=== PATIENT | female | born 1985 | race Caucasian/White ===

== ENCOUNTER 2018-02-19 18:27 | Emergency (ER) | payer OTHER ==
--- NOTE | 2018-02-19 18:35 | ER Report ---
History and Physical Time Seen By MD: 18:36 HPI/ROS CHIEF COMPLAINT: Palpitations HISTORY OF PRESENT ILLNESS: This is a 32-year-old female who presents to the emergency department for palpitations. Patient states that approximate 2 months ago she began to have some minor palpitations, she moved from [place] to [place] for school. However over the last 3 weeks she's an increase in the number palpitations with left-sided anterior chest pain. No radiation. Patient did go to [facility] today for palpitations this morning, she was evaluated there and they did an EKG which she states was "normal". Then tonight approximately 20 this prior to arrival patient was sitting in a theater watching a movie began to have some left-sided anterior chest pain with palpitations, she removed herself from the theater sat down until the pain began to subside and then drove herself to the ER. Patient arrives tearful and anxious. Heart rate around 111. Patient denies any recent illnesses, no nausea or vomiting. No headaches or fevers. Did have some mild diaphoresis however that resolved rather quickly. REVIEW OF SYSTEMS: Constitutional: As above. Eyes: No discharge. ENT: No sore throat. Cardiovascular: As above. Respiratory: No cough, no shortness of breath. Gastrointestinal: No abdominal pain, no vomiting. Genitourinary: No hematuria. Musculoskeletal: No back pain. Skin: No rashes. Neurological: No headache. Allergies: Coded Allergies: Latex, Natural Rubber (Verified Allergy, Mild, HIVES, 02/19/18) metronidazole (Verified Allergy, Mild, HIVES, 02/19/18) Cephalosporins (Verified Allergy, Unknown, HIVES, 02/19/18) Home Meds No Active Prescriptions or Reported Meds Past Medical/Surgical History The patient has no significant past medical or surgical history. Reviewed Nurses Notes: Yes Constitutional Vital Sign - Last 24 Hours 02/19/18 02/19/18 02/19/18 02/19/18 18:32 18:34 18:42 18:44 Temp 98.0 Pulse 111 110 Resp 18 9 B/P (MAP) 197/119 (145) 197/119 194/124 (147) Pulse Ox 97 98 O2 Delivery Room Air 02/19/18 02/19/18 02/19/18 02/19/18 18:57 19:05 19:10 19:15 Pulse 103 100 Resp 18 11 B/P (MAP) 163/110 (127) 166/106 (126) Pulse Ox 95 02/19/18 02/19/18 02/19/18 02/19/18 19:25 19:30 19:40 19:45 Pulse 103 96 Resp 27 11 B/P (MAP) 160/123 (135) ???/??? (166) 02/19/18 02/19/18 02/19/18 02/19/18 19:55 20:00 20:10 20:15 Pulse 96 99 Resp 16 12 B/P (MAP) 160/105 (123) 153/105 (121) 02/19/18 02/19/18 02/19/18 02/19/18 20:25 20:30 20:40 20:45 Pulse 100 98 Resp 16 22 B/P (MAP) 142/94 (110) 154/99 (117) 02/19/18 02/19/18 02/19/18 02/19/18 20:55 21:00 21:15 21:30 Pulse 97 91 97 ??? Resp 14 12 15 B/P (MAP) 158/108 (125) 153/100 (117) ???/??? (1665) 02/19/18 21:45 Pulse ??? B/P (MAP) ???/??? (1665) Physical Exam General Appearance: The patient is alert, has no immediate need for airway protection and no signs of toxicity, anxious. Eyes: Pupils equal and round no pallor or injection. ENT, Mouth: Mucous membranes are moist. Respiratory: There are no retractions, lungs are clear to auscultation. Cardiovascular: Regular rate and rhythm, no murmurs, clicks or rubs. Rate of 103 BPM. Gastrointestinal: Abdomen is soft and non tender, no masses, bowel sounds normal. Neurological: Alert and oriented 4. Moving all extremities. Following all commands. No focal neuro deficits. Skin: Warm and dry, no rashes. Musculoskeletal: Neck is supple non tender. Extremities are nontender, nonswollen and have full range of motion. DIFFERENTIAL DIAGNOSIS: After history and physical exam differential diagnosis was considered for chest pain including but not limited to myocardial ischemia, pericarditis, pulmonary embolus, chest wall pain, pleural inflammation and pulmonary infectious causes. Medical Decision Making Data Points Result Diagram: 8/31/18 1843 02/19/18 1843 Laboratory Hematology Test 02/19/18 18:43 02/19/18 19:00 02/19/18 21:25 Red Blood Count 5.11 M/uL (4.17-5.56) Mean Corpuscular Volume 87.1 fL (80.0-96.0) Mean Corpuscular Hemoglobin 29.6 pg (26.0-33.0) Mean Corpuscular Hemoglobin Concent 34.0 g/dL (32.0-36.0) Red Cell Distribution Width 13.0 % (11.5-14.5) Mean Platelet Volume 9.0 fL (7.2-11.1) Neutrophils (%) (Auto) 59.2 % (39.4-72.5) Lymphocytes (%) (Auto) 32.9 % (17.6-49.6) Monocytes (%) (Auto) 5.3 % (4.1-12.4) Eosinophils (%) (Auto) 1.7 % (0.4-6.7) Basophils (%) (Auto) 0.9 % (0.3-1.4) Nucleated RBC Relative Count (auto) 0.0 /100WBC Neutrophils # (Auto) 6.6 K/uL (2.0-7.4) Lymphocytes # (Auto) 3.7 K/uL (1.3-3.6) Monocytes # (Auto) 0.6 K/uL (0.3-1.0) Eosinophils # (Auto) 0.2 K/uL (0.0-0.5) Basophils # (Auto) 0.1 K/uL (0.0-0.1) Nucleated RBC Absolute Count (auto) 0.00 K/uL D-Dimer Quantitative (PE/DVT) < 0.27 ug/ml (0-0.50) Sodium Level 139 mmol/L (137-145) Potassium Level 3.4 mmol/L (3.5-5.0) Chloride Level 104 mmol/L (98-107) Carbon Dioxide Level 24 mmol/L (22-31) Blood Urea Nitrogen 21 mg/dl (7-18) Creatinine 0.80 mg/dl (0.52-1.04) Glomerular Filtration Rate Calc > 60.0 Random Glucose 116 mg/dl (75-110) Calcium Level 8.7 mg/dl (8.4-10.2) Total Bilirubin 0.2 mg/dl (0.2-1.3) Aspartate Amino Transf (AST/SGOT) 23 U/L (0-35) Alanine Aminotransferase (ALT/SGPT) 20 U/L (0-56) Alkaline Phosphatase 64 U/L (0-126) Total Protein 7.2 g/dl (6.3-8.2) Albumin 4.2 g/dl (3.5-5.0) Urine Color Yellow Urine Clarity Clear Urine pH 6.0 pH (4.8-9.5) Urine Specific [place] 1.018 Urine Protein Negative mg/dL (NEGATIVE) Urine Glucose (UA) Negative mg/dL (NEGATIVE) Urine Ketones Negative mg/dL (NEGATIVE) Urine Blood Negative (NEGATIVE) Urine Nitrite Negative (NEGATIVE) Urine Bilirubin Negative (NEGATIVE) Urine Urobilinogen Negative mg/dL (0.2-1.9) Urine Leukocyte Esterase Negative (NEGATIVE) Urine RBC None /HPF (0-2/HPF) Urine WBC 1 /HPF (0-5/HPF) Urine Squamous Epithelial Cells Many /LPF (</=FEW) Urine Bacteria Negative /HPF (NONE-FEW) Urine Mucus None /HPF (NONE-FEW) Urine HCG, Qualitative Negative (NEGATIVE) Troponin I < 0.012 ng/ml Chemistry Test 02/19/18 18:43 02/19/18 19:00 02/19/18 21:25 White Blood Count 11.2 k/uL (4.5-11.0) Red Blood Count 5.11 M/uL (4.17-5.56) Hemoglobin 15.1 g/dL (12.0-16.0) Hematocrit 44.6 % (34.0-47.0) Mean Corpuscular Volume 87.1 fL (80.0-96.0) Mean Corpuscular Hemoglobin 29.6 pg (26.0-33.0) Mean Corpuscular Hemoglobin Concent 34.0 g/dL (32.0-36.0) Red Cell Distribution Width 13.0 % (11.5-14.5) Platelet Count 351 K/uL (150-450) Mean Platelet Volume 9.0 fL (7.2-11.1) Neutrophils (%) (Auto) 59.2 % (39.4-72.5) Lymphocytes (%) (Auto) 32.9 % (17.6-49.6) Monocytes (%) (Auto) 5.3 % (4.1-12.4) Eosinophils (%) (Auto) 1.7 % (0.4-6.7) Basophils (%) (Auto) 0.9 % (0.3-1.4) Nucleated RBC Relative Count (auto) 0.0 /100WBC Neutrophils # (Auto) 6.6 K/uL (2.0-7.4) Lymphocytes # (Auto) 3.7 K/uL (1.3-3.6) Monocytes # (Auto) 0.6 K/uL (0.3-1.0) Eosinophils # (Auto) 0.2 K/uL (0.0-0.5) Basophils # (Auto) 0.1 K/uL (0.0-0.1) Nucleated RBC Absolute Count (auto) 0.00 K/uL D-Dimer Quantitative (PE/DVT) < 0.27 ug/ml (0-0.50) Glomerular Filtration Rate Calc > 60.0 Calcium Level 8.7 mg/dl (8.4-10.2) Total Bilirubin 0.2 mg/dl (0.2-1.3) Aspartate Amino Transf (AST/SGOT) 23 U/L (0-35) Alanine Aminotransferase (ALT/SGPT) 20 U/L (0-56) Alkaline Phosphatase 64 U/L (0-126) Total Protein 7.2 g/dl (6.3-8.2) Albumin 4.2 g/dl (3.5-5.0) Urine Color Yellow Urine Clarity Clear Urine pH 6.0 pH (4.8-9.5) Urine Specific [place] 1.018 Urine Protein Negative mg/dL (NEGATIVE) Urine Glucose (UA) Negative mg/dL (NEGATIVE) Urine Ketones Negative mg/dL (NEGATIVE) Urine Blood Negative (NEGATIVE) Urine Nitrite Negative (NEGATIVE) Urine Bilirubin Negative (NEGATIVE) Urine Urobilinogen Negative mg/dL (0.2-1.9) Urine Leukocyte Esterase Negative (NEGATIVE) Urine RBC None /HPF (0-2/HPF) Urine WBC 1 /HPF (0-5/HPF) Urine Squamous Epithelial Cells Many /LPF (</=FEW) Urine Bacteria Negative /HPF (NONE-FEW) Urine Mucus None /HPF (NONE-FEW) Urine HCG, Qualitative Negative (NEGATIVE) Troponin I < 0.012 ng/ml Coagulation Test 02/19/18 18:43 D-Dimer Quantitative (PE/DVT) < 0.27 ug/ml Urinalysis Test 02/19/18 19:00 Urine Color Yellow Urine Clarity Clear Urine pH 6.0 pH (4.8-9.5) Urine Specific [place] 1.018 Urine Protein Negative mg/dL (NEGATIVE) Urine Glucose (UA) Negative mg/dL (NEGATIVE) Urine Ketones Negative mg/dL (NEGATIVE) Urine Blood Negative (NEGATIVE) Urine Nitrite Negative (NEGATIVE) Urine Bilirubin Negative (NEGATIVE) Urine Urobilinogen Negative mg/dL (0.2-1.9) Urine Leukocyte Esterase Negative (NEGATIVE) Urine RBC None /HPF (0-2/HPF) Urine WBC 1 /HPF (0-5/HPF) Urine Squamous Epithelial Cells Many /LPF (</=FEW) Urine Bacteria Negative /HPF (NONE-FEW) Urine Mucus None /HPF (NONE-FEW) Urine HCG, Qualitative Negative (NEGATIVE) EKG/Imaging EKG Interpretation 12 lead EKG: EKG 1851. Rhythm: Sinus tachycardia, ventricular rate 103 bpm. [place]: normal QRS: normal ST segments: No ST depression or elevation identified. T-wave inversion in lead 3. No previous EKGs for comparison. 12 lead EKG: Repeat EKG time 2103. Rhythm: Normal sinus rhythm, ventricular rate 95 bpm. [place]: normal QRS: normal ST segments: No ST depression or elevation identified. T-wave inversion in lead 3. No changes from the previous EKG. Imaging Location: [facility] [place] Patient: Vanda Lu : 1985 Visit/Account:[id number] Date of Sevice: 02/19/2018 2 VIEWS CHEST INDICATION: Chest pain. COMPARISON: None available FINDINGS: Cardiomediastinal silhouette and pulmonary vessels within normal limits. There is no focal infiltrate or lobar consolidation. There is no pneumothorax or pleural effusion. No nodule. Upper abdomen is unremarkable. No acute bony abnormality. IMPRESSION: 1. No acute cardiopulmonary process. Report Dictated By: Yonny Beal at 02/19/2018 8:00 PM Report E-Signed By: Yonny Beal at 02/19/2018 8:01 PM WSN:[id number] ED Course/Re-evaluation Clinical Indication for ER IV: Hydration, IV Access ED Course The patient was admitted to room. A history and physical were obtained. Differential diagnoses were considered. An IV was started. A CBC, CMP were obtained. Mild elevation in the white count 11.2 otherwise unremarkable. Chemistry unremarkable. Initial troponin was negative. A 1 L normal saline bolus was given. 324 mg by mouth aspirin. Patient remains pain-free in the ER. 1st EKG showing sinus tachycardia, no ST elevation or depression, repeat EKG showing normal sinus rhythm, no ST depression or elevation. Repeat troponin was negative. Patient was placed on a Holter monitor the results will [facility] I reviewed the repeat troponin with patient. I did tell the patient that I don't have a clear explanation as to why she is having chest pain or palpitations, however this could be secondary to stress. Patient expressed understanding and was discharged home. Return to the ER for any other concerns or worsening symptoms. Decision to Disposition Date: Feb 19, 2018 Decision to Disposition Time: 21:55 Depart Departure Latest Vital Signs Vital Signs Date Time Temp Pulse Resp B/P (MAP) Pulse Ox O2 Delivery O2 Flow Rate FiO2 02/19/18 21:45 ?/??? (1665) 02/19/18 21:15 15 02/19/18 19:10 95 02/19/18 18:34 98.0 Room Air Impression: Primary Impression: Chest pain of unknown etiology Additional Impression: Palpitations Condition: Improved Disposition: HOME OR SELF-CARE New Scripts No Active Prescriptions or Reported Meds Patient Instructions: Chest Pain (ED), Holter Monitoring (ED), Hypertension (ED) Additional Instructions: Continue drinking plenty of water. Get plenty of rest. Keep the holter monitor on for 24 hours, return it to the hospital as directed by the respiratory therapist. The results will be sent to your MD at [facility], Dr. Ross. 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 Return to the ED for any other concerns or any other needs. Problem Qualifiers RASHID DUENAS [employer]LECT[employer] TECHNICIAN-BC Feb 19, 2018 18:35
[2018-02-19] MEDS ORDERED: NS(*) 0.9% 1000 ML BAG 1,000 ML IV ONE (18:48)
[2018-02-19] MEDS ORDERED: ASPIRIN 81 MG CHEW PO ONE (18:50)
[2018-02-19 18:57] LABS: PLATELET COUNT, AUTOMATED 351 K/uL (150-450)
--- NOTE | 2018-02-19 19:21 | EKG ---
FACILITY: [facility] PATIENT NAME: FRANCHESKA SPARROW : [id number] MR: [id number] V: [id number] EXAM DATE: ORDERING PHYSICIAN: RASHID DUENAS TECHNOLOGIST: CHARISMA Meier Reason : Blood Pressure : / mmHG Vent. Rate : 103 BPM Atrial Rate : 103 BPM P-R Int : 142 ms QRS Dur : 082 ms QT Int : 358 ms P-R-T Axes : 056 061 018 degrees QTc Int : 468 ms Sinus tachycardia No acute appearing findings otherwise No previous ECGs available Confirmed by ASHLEY IQBAL ([id number] on 02/19/2018 7:43:04 PM Referred By: Confirmed By:ASHLEY IQBAL
--- NOTE | 2018-02-19 20:05 | RADIOLOGY IMAGING REPORT ---
FACILITY: [facility] [place] PATIENT NAME: Vanda Lu : 1985 MR: [id number] V: [id number] EXAM DATE: ORDERING PHYSICIAN: RASHID DUENAS TECHNOLOGIST: Location: [facility] [place] Patient: Vanda Lu : 1985 Visit/Account:[id number] Date of Sevice: 02/19/2018 2 VIEWS CHEST INDICATION: Chest pain. COMPARISON: None available FINDINGS: Cardiomediastinal silhouette and pulmonary vessels within normal limits. There is no focal infiltrate or lobar consolidation. There is no pneumothorax or pleural effusion. No nodule. Upper abdomen is unremarkable. No acute bony abnormality. IMPRESSION: 1. No acute cardiopulmonary process. Report Dictated By: Yonny Beal at 02/19/2018 8:00 PM Report E-Signed By: Yonny Beal at 02/19/2018 8:01 PM WSN:[id number]
--- NOTE | 2018-02-19 21:39 | EKG ---
FACILITY: [facility] - [place] PATIENT NAME: FRANCHESKA SPARROW : [id number] MR: [id number] V: [id number] EXAM DATE: ORDERING PHYSICIAN: RASHID DUENAS TECHNOLOGIST: CHARISMA Meier Reason : Blood Pressure : / mmHG Vent. Rate : 095 BPM Atrial Rate : 095 BPM P-R Int : 148 ms QRS Dur : 078 ms QT Int : 366 ms P-R-T Axes : 061 063 016 degrees QTc Int : 459 ms Sinus rhythm Possible left atrial enalrgement When compared with ECG of 19-FEB-2018 18:51, No significant change was found Confirmed by ASHLEY IQBAL ([id number] on 02/20/2018 6:07:45 AM Referred By: Confirmed By:ASHLEY IQBAL
--- NOTE | 2018-02-23 17:08 | RT HOLTER TEST ---
FACILITY: [facility] - [place] PATIENT NAME: FRANCHESKA SPARROW : [id number] MR: [id number] V: [id number] EXAM DATE: ORDERING PHYSICIAN: RASHID DUENAS TECHNOLOGIST: DALLIN Hook-up date: 2018-02-19 22:07:00 Duration: 23:56:00 Test Indications: palpitations Medications: [id number] QRS complexes 2 Ventricular ectopics which represent <1 % of total QRS comp. 4 Supraventricular ectopics which represent <1 % of total QRS comp. * Paced QRS complexes which represent % of total QRS comp. VENTRICULAR ECTOPY 2 Isolated 0 Bigeminal Cycles 0 Couplets 0 Runs 0 Beats in Runs * Beats LONGEST at * BPM at :: -- * Beats FASTEST at * BPM at :: -- SUPRAVENTRICULAR ECTOPY 4 Isolated 0 Couplets 0 Runs 0 Beats in Runs * Beats LONGEST at * BPM at :: -- * Beats FASTEST at * BPM at :: -- HEART RATES 74 MIN at 04:11:10 2018-02-20 97 AVG 141 MAX at 16:39:26 2018-02-20 LONGEST RR 0.920 secs at 09:54:05 2018-02-20 S-T LEVELS Channel 1 -12.800 mm MIN at 22:07:00 2018-02-19 -12.800 mm MAX at 22:07:00 2018-02-19 Channel 2 -12.800 mm MIN at 22:07:00 2018-02-19 -12.800 mm MAX at 22:07:00 2018-02-19 Channel 3 -12.800 mm MIN at 22:07:00 2018-02-19 -12.800 mm MAX at 22:07:00 2018-02-19 Sinus rhythm with sinus tachycardia. Infrequent isolated PVC and PAC 3 episodes two of palpitation and one lightheaded from patient log correlate with sinus tachycardia rates of 114, 139, 107 respectively. Other episodes of sinus tachycardia with no corresponding event noted by patient. Confirmed by Constantin Contreras ([id number]) on 02/23/2018 5:09:24 PM Referred By: Vandana Burrisd By: Constantin Banks
== END 2018-02-19 21:55 | disposition home or self-care (01) ==
LOC: ER 18:40
DX: R00.2 Palpitations (principal); R07.9 Chest pain, unspecified
CPT/HCPCS: 71046; 81001; 81025; 84484; 85025; 85379; 93005; 93225; 99284; J7030; 82040; 82247; 82310; 82374; 82435; 82565; 82947; 84075; 84132; 84155; 84295; 84450; 84460; 84520

== ENCOUNTER 2018-04-08 13:55 | Emergency (ER) | payer OTHER ==
--- NOTE | 2018-04-08 14:03 | ER Report ---
History and Physical Time Seen By MD: 14:03 HPI/ROS CHIEF COMPLAINT: Dizziness, back pain HISTORY OF PRESENT ILLNESS: 32-year-old female patient presents to the emergency room with complaint of dizziness and back pain. Patient states that she has been having intermittent episodes of dizziness, especially about an hour after she eats, for the last few days. She states that today she was walking and felt like she is going to pass out. She states that she started to get the television when walking. She did lay down and the dizziness seemed to resolve. Patient states that she is having concerns there might be something more going on. She denies any head injury, nausea, vomiting or diarrhea. Patient states that she has been having more back pain. She states she does have history of back surgery in 2011. Patient states she has increasing pain with moving the right leg. REVIEW OF SYSTEMS: Respiratory: No cough, no dyspnea. Cardiovascular: No chest pain, no palpitations. Gastrointestinal: As noted above Musculoskeletal: As noted above Allergies: Coded Allergies: Latex, Natural Rubber (Verified Allergy, Mild, HIVES, 02/19/18) metronidazole (Verified Allergy, Mild, HIVES, 02/19/18) Cephalosporins (Verified Allergy, Unknown, HIVES, 02/19/18) Home Meds Active Scripts Ketorolac Tromethamine (KETOROLAC TROMETHAMINE) 10 Mg Tab, 10 MG PO Q6H, #20 TAB Prov:MARK GUERRERO [facility] 04/08/18 Baclofen (BACLOFEN) 10 Mg Tablet, 5 MG PO TID, #15 TAB Prov:MARK GUERRERO [facility] 04/08/18 Past Medical/Surgical History Patient has a past medical history of hypertension which is currently being treated. Patient has surgical history of laminectomy with partial discectomy. Reviewed Nurses Notes: Yes Constitutional Vital Sign - Last 24 Hours 04/08/18 04/08/18 04/08/18 04/08/18 14:00 14:01 14:15 14:30 Temp 98.2 Pulse 94 91 86 Resp 16 B/P (MAP) 147/96 (113) 147/96 117/88 (98) Pulse Ox 95 94 92 O2 Delivery Room Air 04/08/18 04/08/18 04/08/18 04/08/18 14:45 15:00 15:15 15:30 Pulse 88 83 91 ??? B/P (MAP) 134/88 (103) ???/??? (1665) Pulse Ox 92 93 92 04/08/18 04/08/18 04/08/18 04/08/18 15:45 16:00 16:15 16:30 Pulse ??? 84 84 88 B/P (MAP) 117/82 (94) 114/97 (103) Pulse Ox 90 92 91 04/08/18 04/08/18 16:45 17:00 Pulse 92 84 B/P (MAP) 116/85 (95) Pulse Ox 91 93 Physical Exam General Appearance: The patient is alert, has no immediate need for airway protection and no current signs of toxicity. Eyes: Pupils equal and round no injection. Extraocular movements are intact. Respiratory: Chest is non tender, lungs are clear to auscultation. Cardiac: regular rate and rhythm Gastrointestinal: Abdomen is soft and non tender, no masses, bowel sounds normal. Musculoskeletal: Neck: Neck is supple and non tender. Extremities have full range of motion and are non tender. Skin: No rashes or lesions. Neuro: Patient is alert and oriented 4, cranial nerves II through XII grossly intact. DIFFERENTIAL DIAGNOSIS: After history and physical exam differential diagnosis was considered for dizziness including but not limited to peripheral and central causes of vertigo, orthostatic causes including dehydration, and blood loss. Medical Decision Making Data Points Result Diagram: 04/08/18 1454 04/08/18 1454 Laboratory Hematology Test 04/08/18 14:54 04/08/18 15:00 Red Blood Count 4.74 M/uL (4.17-5.56) Mean Corpuscular Volume 86.4 fL (80.0-96.0) Mean Corpuscular Hemoglobin 29.3 pg (26.0-33.0) Mean Corpuscular Hemoglobin Concent 33.9 g/dL (32.0-36.0) Red Cell Distribution Width 12.6 % (11.5-14.5) Mean Platelet Volume 9.4 fL (7.2-11.1) Neutrophils (%) (Auto) 76.0 % (39.4-72.5) Lymphocytes (%) (Auto) 17.4 % (17.6-49.6) Monocytes (%) (Auto) 5.2 % (4.1-12.4) Eosinophils (%) (Auto) 0.8 % (0.4-6.7) Basophils (%) (Auto) 0.6 % (0.3-1.4) Nucleated RBC Relative Count (auto) 0.0 /100WBC Neutrophils # (Auto) 8.7 K/uL (2.0-7.4) Lymphocytes # (Auto) 2.0 K/uL (1.3-3.6) Monocytes # (Auto) 0.6 K/uL (0.3-1.0) Eosinophils # (Auto) 0.1 K/uL (0.0-0.5) Basophils # (Auto) 0.1 K/uL (0.0-0.1) Nucleated RBC Absolute Count (auto) 0.00 K/uL Erythrocyte Sedimentation Rate 8 mm/HOUR (0-20) Sodium Level 141 mmol/L (137-145) Potassium Level 3.5 mmol/L (3.5-5.0) Chloride Level 104 mmol/L (98-107) Carbon Dioxide Level 26 mmol/L (22-31) Blood Urea Nitrogen 16 mg/dl (7-18) Creatinine 0.90 mg/dl (0.52-1.04) Glomerular Filtration Rate Calc > 60.0 Random Glucose 105 mg/dl (75-110) Calcium Level 9.1 mg/dl (8.4-10.2) Total Bilirubin 0.2 mg/dl (0.2-1.3) Aspartate Amino Transf (AST/SGOT) 19 U/L (0-35) Alanine Aminotransferase (ALT/SGPT) 26 U/L (0-56) Alkaline Phosphatase 74 U/L (0-126) C-Reactive Protein 0.8 mg/dl (<1.0) Total Protein 6.8 g/dl (6.3-8.2) Albumin 3.8 g/dl (3.5-5.0) Human Chorionic Gonadotropin, Qual Negative (NEGATIVE) Urine Color Straw Urine Clarity Clear Urine pH 6.0 pH (4.8-9.5) Urine Specific [place] 1.006 Urine Protein Negative mg/dL (NEGATIVE) Urine Glucose (UA) Negative mg/dL (NEGATIVE) Urine Ketones Negative mg/dL (NEGATIVE) Urine Blood Negative (NEGATIVE) Urine Nitrite Negative (NEGATIVE) Urine Bilirubin Negative (NEGATIVE) Urine Urobilinogen Negative mg/dL (0.2-1.9) Urine Leukocyte Esterase Negative (NEGATIVE) Urine RBC <1 /HPF (0-2/HPF) Urine WBC 1 /HPF (0-5/HPF) Urine Squamous Epithelial Cells Many /LPF (</=FEW) Urine Bacteria Negative /HPF (NONE-FEW) Urine Mucus None /HPF (NONE-FEW) Chemistry Test 04/08/18 14:54 04/08/18 15:00 White Blood Count 11.4 k/uL (4.5-11.0) Red Blood Count 4.74 M/uL (4.17-5.56) Hemoglobin 13.9 g/dL (12.0-16.0) Hematocrit 40.9 % (34.0-47.0) Mean Corpuscular Volume 86.4 fL (80.0-96.0) Mean Corpuscular Hemoglobin 29.3 pg (26.0-33.0) Mean Corpuscular Hemoglobin Concent 33.9 g/dL (32.0-36.0) Red Cell Distribution Width 12.6 % (11.5-14.5) Platelet Count 297 K/uL (150-450) Mean Platelet Volume 9.4 fL (7.2-11.1) Neutrophils (%) (Auto) 76.0 % (39.4-72.5) Lymphocytes (%) (Auto) 17.4 % (17.6-49.6) Monocytes (%) (Auto) 5.2 % (4.1-12.4) Eosinophils (%) (Auto) 0.8 % (0.4-6.7) Basophils (%) (Auto) 0.6 % (0.3-1.4) Nucleated RBC Relative Count (auto) 0.0 /100WBC Neutrophils # (Auto) 8.7 K/uL (2.0-7.4) Lymphocytes # (Auto) 2.0 K/uL (1.3-3.6) Monocytes # (Auto) 0.6 K/uL (0.3-1.0) Eosinophils # (Auto) 0.1 K/uL (0.0-0.5) Basophils # (Auto) 0.1 K/uL (0.0-0.1) Nucleated RBC Absolute Count (auto) 0.00 K/uL Erythrocyte Sedimentation Rate 8 mm/HOUR (0-20) Glomerular Filtration Rate Calc > 60.0 Calcium Level 9.1 mg/dl (8.4-10.2) Total Bilirubin 0.2 mg/dl (0.2-1.3) Aspartate Amino Transf (AST/SGOT) 19 U/L (0-35) Alanine Aminotransferase (ALT/SGPT) 26 U/L (0-56) Alkaline Phosphatase 74 U/L (0-126) C-Reactive Protein 0.8 mg/dl (<1.0) Total Protein 6.8 g/dl (6.3-8.2) Albumin 3.8 g/dl (3.5-5.0) Human Chorionic Gonadotropin, Qual Negative (NEGATIVE) Urine Color Straw Urine Clarity Clear Urine pH 6.0 pH (4.8-9.5) Urine Specific [place] 1.006 Urine Protein Negative mg/dL (NEGATIVE) Urine Glucose (UA) Negative mg/dL (NEGATIVE) Urine Ketones Negative mg/dL (NEGATIVE) Urine Blood Negative (NEGATIVE) Urine Nitrite Negative (NEGATIVE) Urine Bilirubin Negative (NEGATIVE) Urine Urobilinogen Negative mg/dL (0.2-1.9) Urine Leukocyte Esterase Negative (NEGATIVE) Urine RBC <1 /HPF (0-2/HPF) Urine WBC 1 /HPF (0-5/HPF) Urine Squamous Epithelial Cells Many /LPF (</=FEW) Urine Bacteria Negative /HPF (NONE-FEW) Urine Mucus None /HPF (NONE-FEW) Urinalysis Test 04/08/18 15:00 Urine Color Straw Urine Clarity Clear Urine pH 6.0 pH (4.8-9.5) Urine Specific [place] 1.006 Urine Protein Negative mg/dL (NEGATIVE) Urine Glucose (UA) Negative mg/dL (NEGATIVE) Urine Ketones Negative mg/dL (NEGATIVE) Urine Blood Negative (NEGATIVE) Urine Nitrite Negative (NEGATIVE) Urine Bilirubin Negative (NEGATIVE) Urine Urobilinogen Negative mg/dL (0.2-1.9) Urine Leukocyte Esterase Negative (NEGATIVE) Urine RBC <1 /HPF (0-2/HPF) Urine WBC 1 /HPF (0-5/HPF) Urine Squamous Epithelial Cells Many /LPF (</=FEW) Urine Bacteria Negative /HPF (NONE-FEW) Urine Mucus None /HPF (NONE-FEW) EKG/Imaging EKG Interpretation 12 lead EKG: Rhythm: normal sinus rhythm with a ventricular rate of 90 bpm [place]: normal QRS: normal ST segments: normal Imaging EXAMINATION: Chest 2 Views HISTORY: Back pain. Chest pain. Difficulty breathing. COMPARISON: 02/19/2018. FINDINGS: The lungs are clear. No focal consolidation or pleural fluid. No pneumothorax. Normal cardiomediastinal silhouette, with normal heart size and pulmonary vascularity. Visualized osseous structures are unremarkable. IMPRESSION: Negative chest. Report Dictated By: Doc Deras MD at 04/08/2018 3:43 PM Report E-Signed By: Doc Deras MD at 04/08/2018 3:[address] scan without contrast HISTORY: Dizziness, weakness COMPARISONS: None TECHNIQUE: Non-contrast head CT was performed with sagittal and coronal refo rmations. One of the following dose optimization techniques was utilized in the performance of this exam: automated exposure control; adjustment of the mA and/or kV according to patient size; or use of iterative reconstruction technique. Specific details can be referenced in the facility's radiology CT exam operational policy. FINDINGS: There is no intracranial hemorrhage, hydrocephalus or midline shift. The basal cisterns, arce-white differentiation, and convexity sulci are maintained. Normal orbital soft tissues. The mastoid air cells are clear. The paranasal sinuses are clear. The osseous structures are normal. IMPRESSION: No acute intracranial abnormality. Normal head CT. Report Dictated By: Kin Franco MD at 04/08/2018 4:07 PM Report E-Signed By: Kin Franco MD at 04/08/2018 4:09 PM Exam type: LUMBAR SPINE 4 VIEWS History: Chronic back pain, worse today Comparison: None. Findings: Four views of the lumbar spine are submitted There are five nonrib-bearing lumbar-type vertebral bodies present. There is straightening of the normal lumbar lordosis which can be seen with muscle spasm.. There is moderate disc space narrowing at L4-5 and L5-S1 with marginal osteophytes present IMPRESSION: 1. Straightening of the normal lumbar lordosis which can be seen with muscle spasm Moderate spondylotic changes L4-5 and L5-S1 Report Dictated By: Lakesha Martinez MD at 04/08/2018 4:25 PM Report E-Signed By: Lakesha Martinez MD at 04/08/2018 4:26 PM ED Course/Re-evaluation ED Course Patient was admitted to an exam room, history and physical were obtained. Differential diagnoses were considered. On exam lungs are clear, heart regular, abdomen soft nontender. Patient did have equal strength bilaterally. Patient had some tenderness to the lumbar spine. X-rays done of the lumbar spine, a CT scan of the head was done, chest x-ray, EKG were done. EKG showed normal sinus rhythm, chest x-ray was negative, CT scan of the head was negative. X-rays lumbar spine did show a decreased lordosis of a spine. A CBC, CMP, urinalysis were done. Lab results were unremarkable. I discussed the findings with patient. I believe that the cause of her dizziness and feeling that she is going to pass out is likely stimulation of the vagus nerve caused by spasms of the back. She is to limit activity by pain, we will give her a muscle relaxer as well as an anti-inflammatory. She is to take those as directed. She is to follow-up with her primary care provider tomorrow as previously scheduled. She is return to e mergency room condition worsens. Patient verbalized understanding and agreement with plan. Decision to Disposition Date: Apr 08, 2018 Decision to Disposition Time: 16:53 Depart Departure Latest Vital Signs Vital Signs Date Time Temp Pulse Resp B/P (MAP) Pulse Ox O2 Delivery O2 Flow Rate FiO2 04/08/18 17:00 84 116/85 (95) 93 04/08/18 14:01 98.2 16 Room Air Impression: Primary Impression: Back muscle spasm Additional Impression: Vasovagal near syncope Condition: Improved Disposition: HOME OR SELF-CARE New Scripts Ketorolac Tromethamine (KETOROLAC TROMETHAMINE) 10 Mg Tab 10 MG PO Q6H, #20 TAB Prov: MARK GUERRERO 04/08/18 Baclofen (BACLOFEN) 10 Mg Tablet 5 MG PO TID, #15 TAB Prov: MARK GEURRERO 04/08/18 Patient Instructions: Muscle Spasm (ED) Additional Instructions: Increase fluid intake. Get plenty of rest. Increase exercise, start with low impact aerobic activities. Return to the ER if condition worsens. Follow up with your primary care provider tomorrow as previously scheduled. Problem Qualifiers MARK GUERRERO Apr 08, 2018 14:03
[2018-04-08 15:16] LABS: PLATELET COUNT, AUTOMATED 297 K/uL (150-450)
--- NOTE | 2018-04-08 15:48 | RADIOLOGY IMAGING REPORT ---
FACILITY: [facility] - [place] PATIENT NAME: Vanda Lu : 1985 MR: [id number] V: [id number] EXAM DATE: ORDERING PHYSICIAN: MARK GUERRERO TECHNOLOGIST: Location: [facility] [place] Patient: Vanda Lu : 1985 Visit/Account:[id number] Date of Sevice: 04/08/2018 EXAMINATION: Chest 2 Views HISTORY: Back pain. Chest pain. Difficulty breathing. COMPARISON: 02/19/2018. FINDINGS: The lungs are clear. No focal consolidation or pleural fluid. No pneumothorax. Normal cardiomedias tinal silhouette, with normal heart size and pulmonary vascularity. Visualized osseous structures ar e unremarkable. IMPRESSION: Negative chest. Report Dictated By: Doc Deras MD at 04/08/2018 3:43 PM Report E-Signed By: Doc Deras MD at 04/08/2018 3:44 PM WSN:[id number]
--- NOTE | 2018-04-08 16:13 | RADIOLOGY IMAGING REPORT ---
FACILITY: [facility] PATIENT NAME: Vanda Lu : 1985 MR: [id number] V: [id number] EXAM DATE: ORDERING PHYSICIAN: MARK GUERRERO TECHNOLOGIST: [place] [facility] [place]: Vanda Lu : 1985 Visit/Account:[id number] Date of Sevice: 04/08/[address] scan without contrast HISTORY: Dizziness, weakness COMPARISONS: None TECHNIQUE: Non-contrast head CT was performed with sagittal and coronal reformations. One of the following dose optimization techniques was utilized in the performance of this exam: autom ated exposure control; adjustment of the mA and/or kV according to patient size; or use of iterative reconstruction technique. Specific details can be referenced in the facility's radiology CT exam ope rational policy. FINDINGS: There is no intracranial hemorrhage, hydrocephalus or midline shift. The basal cisterns, arce-white differentiation, and convexity sulci are maintained. Normal orbital soft tissues. The mastoid air cells are clear. The paranasal sinuses are clear. The osseous structures are normal . IMPRESSION: No acute intracranial abnormality. Normal head CT. Report Dictated By: Kin Franco MD at 04/08/2018 4:07 PM Report E-Signed By: Kin Franco MD at 04/08/2018 4:09 PM WSN:[id number]
--- NOTE | 2018-04-08 16:31 | RADIOLOGY IMAGING REPORT ---
FACILITY: [facility] PATIENT NAME: Vanda Lu : 1985 MR: [id number] V: [id number] EXAM DATE: ORDERING PHYSICIAN: MARK GUERRERO TECHNOLOGIST: Location: [facility] Patient: Vanda Lu : 1985 Visit/Account:[id number] Date of Sevice: 04/08/2018 Exam type: LUMBAR SPINE 4 VIEWS History: Chronic back pain, worse today Comparison: None. Findings: Four views of the lumbar spine are submitted There are five nonrib-bearing lumbar-type vertebral bodies present. There is straightening of the no rmal lumbar lordosis which can be seen with muscle spasm.. There is moderate disc space narrowing at L4-5 and L5-S1 with marginal osteophytes present IMPRESSION: 1. Straightening of the normal lumbar lordosis which can be seen with muscle spasm Moderate spondylotic changes L4-5 and L5-S1 Report Dictated By: Lakesha Martinez MD at 04/08/2018 4:25 PM Report E-Signed By: Lakesha Martinez MD at 04/08/2018 4:26 PM WSN:[id number]
[2018-04-08] MEDS ORDERED: KET10 PO (16:51)
[2018-04-08] MEDS ORDERED: BACL-1 PO (16:51)
[2018-04-08 17:00] VITALS: BP 116/85
--- NOTE | 2018-04-09 10:59 | EKG ---
FACILITY: [facility] PATIENT NAME: FRANCHESKA SPARROW : [id number] MR: [id number] V: [id number] EXAM DATE: ORDERING PHYSICIAN: MARK GUERRERO TECHNOLOGIST: Test Reason : Blood Pressure : / mmHG Vent. Rate : 090 BPM Atrial Rate : 090 BPM P-R Int : 152 ms QRS Dur : 084 ms QT Int : 364 ms P-R-T Axes : 067 062 033 degrees QTc Int : 445 ms Normal sinus rhythm Possible Left atrial enlargement Borderline ECG When compared with ECG of 19-FEB-2018 21:03, Previous ECG has undetermined rhythm, needs review Confirmed by CRISTOBAL JOSEPH ([id number]) on 04/09/2018 7:39:35 PM Referred By: Confirmed By:CRISTOBAL JOSEPH
== END 2018-04-08 17:06 | disposition home or self-care (01) ==
LOC: ER 14:01
DX: R25.2 Cramp and spasm (principal); R55 Syncope and collapse
CPT/HCPCS: 70450; 71046; 72120; 81001; 82040; 82247; 82310; 82374; 82435; 82565; 82947; 84075; 84132; 84155; 84295; 84450; 84460; 84520; 84703; 85025; 85651; 86140; 93005; 99284